=== PATIENT | female | born 1995 | race African-American/Black ===

== ENCOUNTER 2017-02-28 14:24 | Emergency (ER) | payer MEDICAID ==
[~2017-02-28] VITALS: Ht 175.3 cm; Wt 86.0 kg
[2017-02-28 14:28] VITALS: BP 127/76
== END 2017-02-28 15:04 | disposition home or self-care (01) ==
LOC: ED 14:45
DX: H66.003 Acute suppurative otitis media without spontaneous rupture of ear drum, bilateral (principal)
CPT/HCPCS: 99283

== ENCOUNTER 2017-03-29 18:21 | Emergency (ER) | payer MEDICAID ==
[~2017-03-29] VITALS: Ht 180.3 cm; Wt 87.9 kg
[2017-03-29 18:26] VITALS: BP 112/78
[2017-03-29] MEDS ORDERED: DIAZEPAM 5 MG TABLET ONE (19:42)
[2017-03-29] MEDS ORDERED: KETOROLAC 30 MG/1 ML ONE (19:42)
[2017-03-29] MEDS ORDERED: DIAZEPAM 5 MG TABLET PO ONE (20:00)
[2017-03-29] MEDS ORDERED: KETOROLAC 30 MG/1 ML IM ONE (20:00)
== END 2017-03-29 20:26 | disposition home or self-care (01) ==
LOC: ED 20:20
DX: S39.012A Strain of muscle, fascia and tendon of lower back, initial encounter (principal); X58.XXXA Exposure to other specified factors, initial encounter; Y93.89 Activity, other specified; Y99.8 Other external cause status; Y92.89 Other specified places as the place of occurrence of the external cause
CPT/HCPCS: 72110; 96372; 99284; J1885

== ENCOUNTER 2018-07-18 15:33 | Emergency (ER) | payer MEDICAID ==
[~2018-07-18] VITALS: Ht 182.9 cm; Wt 89.6 kg
[2018-07-18 16:25] LABS: BASOPHILS # (AUTO) 0.25 x10^3/uL (0-0.1); BASOPHILS % (AUTO) 2 % (0-1); EOSINOPHILS # (AUTO) 0.01 x10^3/uL (0-0.4); EOSINOPHILS % (AUTO) 0 % (1-7); LYMPHOCYTES # (AUTO) 3.46 x10^3/uL (1-3.4); LYMPHOCYTES % (AUTO) 23 % (22-44); MD NO; MEAN CORPUSCULAR HEMOGLOBIN 31.1 pg (27.0-34.8); MEAN CORPUSCULAR HGB CONC 34.1 g/dL (32.4-35.8); MEAN CORPUSCULAR VOLUME 91.4 fL (80-100); MONOCYTES # (AUTO) 0.92 x10^3/uL (0.2-0.8); MONOCYTES % (AUTO) 6 % (2-9); NEUTROPHILS # (AUTO) 10.33 x10^3/uL (1.8-6.8); NEUTROPHILS % (AUTO) 69 % (42-75); PLATELET COUNT 407 x10^3/uL (130-400); RED BLOOD COUNT 4.75 x10^6/uL (3.82-5.3); RED CELL DISTRIBUTION WIDTH 12.4 % (9.6-15.2)
[2018-07-18 16:28] LABS: ALANINE AMINOTRANSFERASE 19 U/L (12-78); ALBUMIN 3.6 g/dL (3.4-5.0); ANION GAP 6 mmol/L (5-15); CALCIUM 9.1 mg/dL (8.5-10.1); CHLORIDE 106 mmol/L (98-107); CREATININE 0.97 mg/dL (0.55-1.02)
[2018-07-18 16:33] LABS: ALKALINE PHOSPHATASE 98 U/L (45-117); BILIRUBIN,TOTAL 0.5 mg/dL (0.2-1.0)
[2018-07-18 16:46] LABS: AMPHETAMINE SCREEN, URINE Negative (Negative); BARBITURATE SCREEN, URINE Negative (Negative); BENZODIAZEPINE SCREEN, URINE Negative (Negative); CANNABINOID SCREEN, URINE Positive (Negative); COCAINE SCREEN, URINE Positive (Negative); METHADONE SCREEN, URINE Negative (Negative); OPIATE SCREEN, URINE Negative (Negative)
[2018-07-18] MEDS ORDERED: ACETAMINOPHEN 500 MG TABLET PO ONE (17:00)
[2018-07-18] MEDS ORDERED: IBUPROFEN 200 MG TABLET PO ONE (17:00)
[2018-07-18] MEDS ORDERED: IBUPROFEN 200 MG TABLET ONE (17:05)
[2018-07-18] MEDS ORDERED: ACETAMINOPHEN 500 MG TABLET ONE (17:06)
[2018-07-18 17:10] VITALS: BP 143/80
== END 2018-07-18 17:34 | disposition home or self-care (01) ==
LOC: ED 16:50
DX: S39.012A Strain of muscle, fascia and tendon of lower back, initial encounter (principal); R56.9 Unspecified convulsions; F14.10 Cocaine abuse, uncomplicated; X58.XXXA Exposure to other specified factors, initial encounter; Y93.89 Activity, other specified; Y99.8 Other external cause status; Y92.89 Other specified places as the place of occurrence of the external cause
CPT/HCPCS: 36415; 70450; 72110; 80053; 80307; 84703; 85025; 99285

== ENCOUNTER 2018-11-24 19:57 | Emergency (ER) | payer MEDICAID ==
[~2018-11-24] VITALS: Ht 180.3 cm; Wt 81.0 kg
[2018-11-24 20:10] VITALS: BP 122/70
== END 2018-11-24 20:31 | disposition home or self-care (01) ==
LOC: ED 20:25
DX: H69.91 Unspecified Eustachian tube disorder, right ear (principal)
CPT/HCPCS: 99283

== ENCOUNTER 2018-11-27 09:10 | Emergency (ER) | payer MEDICAID ==
[~2018-11-27] VITALS: Ht 180.3 cm; Wt 81.4 kg
[2018-11-27 09:17] VITALS: BP 110/64
--- NOTE | 2018-11-27 09:37 | NUR ---
request sent to pharmacy of Ofloxacin ear drops.
[2018-11-27] MEDS ORDERED: OFLOXACIN EAR DROPS 0.3%, 5ML OTIC ONE (10:00)
[2018-11-27] MEDS ORDERED: LORATADINE/PSE 5/120MG TAB.ER.12H PO ONE (10:00)
--- NOTE | 2018-11-27 10:51 | NUR ---
Patient/Caregiver given discharge instructions and they have confirmed that they understand the instructions. Patient ambulatory with steady gait.
== END 2018-11-27 10:52 | disposition home or self-care (01) ==
LOC: ED 09:40
DX: G89.11 Acute pain due to trauma (principal); H65.01 Acute serous otitis media, right ear; H72.91 Unspecified perforation of tympanic membrane, right ear
CPT/HCPCS: 99282; 99283

== ENCOUNTER 2018-12-13 15:45 | Emergency (ER) | payer MEDICAID ==
[~2018-12-13] VITALS: Ht 180.3 cm; Wt 83.0 kg
[2018-12-13 15:49] VITALS: BP 127/79
== END 2018-12-13 16:32 | disposition home or self-care (01) ==
LOC: ED 16:26
DX: G89.11 Acute pain due to trauma (principal); H72.2X1 Other marginal perforations of tympanic membrane, right ear
CPT/HCPCS: 99282